=== PATIENT | female | born 1945 | race Caucasian/White ===

== ENCOUNTER 2020-09-23 12:31 | Inpatient (IN) | payer MEDICARE, BC ==
[2020-09-23] MEDS ORDERED: HYDROmorphone 0.5 MG/0.5 ML SYRINGE IVP STA ×3 (13:06→16:31)
--- NOTE | 2020-09-23 13:16 | ED ---
General Adult HPI - General Chief complaint: Extremity Injury, Upper Stated complaint: +COVID Broken R Arm Time Seen by Provider: 09/23/20 12:40 Source: patient, EMS, RN notes reviewed, old records reviewed Mode of arrival: EMS - History of Present Illness Initial comments: This is a 74-year-old female who presents emergency Department from [place] with a midshaft right humerus fracture. The orthopedic surgeon there stated he could do surgery until Sunday and thought the patient needed intervention so they sent the patient to our emergency department. Patient states she was outside and tripped and fell and broke her arm patient states at that time she did not hit her head or neck patient denies any headache or neck pain. Patient denies numbness weakness per patient denies any back pain chest pain L petitions shortness of breath per patient denies any abdominal pain patient states she has no other complaints besides the arm pain. - Related Data Home Medications Medication Instructions Recorded Confirmed Aspirin 81 mg PO DAILY 02/10/14 09/23/20 Benazepril [Lotensin] 10 mg PO DAILY 02/10/14 09/23/20 Levothyroxine Sodium [Synthroid] 125 mcg PO DAILY 02/10/14 09/23/20 Meloxicam 15 mg PO DAILY 02/10/14 09/23/20 Omeprazole [PriLOSEC] 20 mg PO DAILY 02/10/14 09/23/20 Potassium Chloride [Klor-Con 10] 10 meq PO DAILY 02/10/14 09/23/20 atenoloL [Tenormin] 25 mg PO BID 02/10/14 09/23/20 hydroCHLOROthiazide [Hydrodiuril] 12.5 mg PO DAILY 02/10/14 09/23/20 sulfaSALAzine [Azulfidine] 500 mg PO BID 02/10/14 09/23/20 Atorvastatin [Lipitor] 40 mg PO HS 09/23/20 09/23/20 Calcium Carbonate [Calcium] 600 mg PO BID 09/23/20 09/23/20 Gabapentin 600 mg PO TID 09/23/20 09/23/20 Montelukast [Singulair] 10 mg PO HS 09/23/20 09/23/20 Multivitamins, Thera [Multivitamin 1 tab PO DAILY 09/23/20 09/23/20 (formulary)] PARoxetine HCL [Paxil] 40 mg PO DAILY 09/23/20 09/23/20 amLODIPine [Norvasc] 10 mg PO DAILY 09/23/20 09/23/20 hydrALAZINE HCL [Apresoline] 25 mg PO TID 09/23/20 09/23/20 Allergies Allergy/AdvReac Type Severity Reaction Status Date / Time No Known Allergies Allergy Verified 09/23/20 13:54 Review of Systems ROS Statement: Those systems with pertinent positive or pertinent negative responses have been documented in the HPI. ROS Other: All systems not noted in ROS Statement are negative. Past Medical History Past Medical History: GERD/Reflux, Hyperlipidemia, Hypertension, Rheumatoid Arthritis (RA), Sleep Apnea/CPAP/BIPAP, Thyroid Disorder Additional Past Medical History / Comment(s): CPAP @ 17 L. RENAL CALCULI. History of Any Multi-Drug Resistant Organisms: None Reported Past Surgical History: Cholecystectomy, Heart Catheterization, Hysterectomy, Joint Replacement, Orthopedic Surgery Additional Past Surgical History / Comment(s): LEFT PAROTIDECTOMY. ORIF RIGHT RIGHT TOTAL KNEE. BETH. CATARACTS. CYSTO/RENAL CALCULI. Past Anesthesia/Blood Transfusion Reactions: Motion Sickness, Postoperative Nausea & Vomiting (PONV) Past Psychological History: No Psychological Hx Reported Smoking Status: Former smoker Past Alcohol Use History: Rare Past Drug Use History: None Reported - Past Family History Mother Family Medical History: Cancer General Exam - General Exam Comments Initial Comments: GENERAL: Patient is well-developed and well-nourished. Patient is nontoxic and well- hydrated and is in mild distress. ENT: Neck is soft and supple. No significant lymphadenopathy is noted. Oropharynx is clear. Moist mucous membranes. Neck has full range of motion without eliciting any pain EYES: The sclera were anicteric and conjunctiva were pink and moist. Extraocular movements were intact and pupils were equal round and reactive to light. Eyelids were unremarkable. PULMONARY: Unlabored respirations. Good breath sounds bilaterally. No audible rales rhonchi or wheezing was noted. CARDIOVASCULAR: There is a regular rate and rhythm without any murmurs gallops or rubs. ABDOMEN: Soft and nontender with normal bowel sounds. SKIN: Skin is clear with no lesions or rashes and otherwise unremarkable. NEUROLOGIC: Patient is alert and oriented x3. Cranial nerves II through XII are grossly intact. Motor and sensory are also intact. Normal speech, volume and content. Symmetrical smile. MUSCULOSKELETAL: Patient is unable to move the right arm she does have a splint in place it is a upper arm sugar tong splint. LYMPHATICS: No significant lymphadenopathy is noted PSYCHIATRIC: Normal psychiatric evaluation. Course Vital Signs 09/23/20 09/23/20 12:37 16:38 Temperature 98.2 F Pulse Rate 67 70 Respiratory 18 18 Rate Blood Pressure 153/69 147/77 O2 Sat by Pulse 96 92 L Oximetry Medical Decision Making - Medical Decision Making Patient's labs were reviewed and I reviewed the x-rays that showed a mid shaft fracture of the right humerus with angulation and displacement of 50%. [facility] she came in and saw the patient placed the patient a cast and will be admitting the patient overnight. - Lab Data Lab Results 09/23/20 Range/Units 13:48 Coronavirus (PCR) Not Detected (Not Detectd) Disposition Clinical Impression: Right humeral fracture, Inadequate pain control Disposition: ADMITTED IP TO THIS HOSP Referrals: Monico Olmos MD [Primary Care Provider] - 1-2 days Time of Disposition: 17:31
[2020-09-23] MEDS ORDERED: KETAMINE 10 MG/ML 20 ML VIAL IV ONE (16:30)
[2020-09-23] MEDS ORDERED: SODIUM CHLORIDE 0.9% 1,000 ML IV ONE (17:31)
[2020-09-23] MEDS ORDERED: HYDROmorphone 0.5 MG/0.5 ML SYRINGE IVP PRN (17:32)
[2020-09-23] MEDS ORDERED: HYDROmorphone 1 MG/ML 1 ML SYRINGE IVP PRN (18:03)
[2020-09-23] MEDS ORDERED: HYDROcodone/APAP 5-325MG 1 EACH TAB PO PRN (18:03)
[2020-09-23] MEDS ORDERED: ONDANSETRON 4 MG/2 ML VIAL IVP PRN (18:03)
[2020-09-23] MEDS ORDERED: NALOXONE 0.4 MG/ML 1 ML VIAL IV PRN (18:03)
--- NOTE | 2020-09-23 18:18 | P.HPOR ---
History of Present Illness H&P Date: 09/23/20 Chief Complaint: Right arm pain This is a 74-year-old female who was transferred from [facility] today with a midshaft humerus fracture. The patient reportedly tested positive for Covid in [place] and was told she would need surgery but they would be unable to perform the surgery. She was transferred to [facility] today where she tested negative for Covid. She reportedly had a fall yesterday and sustained injury to her right arm. We were consulted for orthopedic evaluation. Past Medical History Past Medical History: GERD/Reflux, Hyperlipidemia, Hypertension, Rheumatoid Arthritis (RA), Sleep Apnea/CPAP/BIPAP, Thyroid Disorder Additional Past Medical History / Comment(s): CPAP @ 17 L. RENAL CALCULI. History of Any Multi-Drug Resistant Organisms: None Reported Past Surgical History: Cholecystectomy, Heart Catheterization, Hysterectomy, Joint Replacement, Orthopedic Surgery Additional Past Surgical History / Comment(s): LEFT PAROTIDECTOMY. ORIF RIGHT RIGHT TOTAL KNEE. BETH. CATARACTS. CYSTO/RENAL CALCULI. Past Anesthesia/Blood Transfusion Reactions: Motion Sickness, Postoperative Nausea & Vomiting (PONV) Past Psychological History: No Psychological Hx Reported Smoking Status: Former smoker Past Alcohol Use History: Rare Past Drug Use History: None Reported - Past Family History Mother Family Medical History: Cancer Medications and Allergies Home Medications Medication Instructions Recorded Confirmed Type Aspirin 81 mg PO DAILY 02/10/14 09/23/20 History Benazepril [Lotensin] 10 mg PO DAILY 02/10/14 09/23/20 History Levothyroxine Sodium [Synthroid] 125 mcg PO DAILY 02/10/14 09/23/20 History Meloxicam 15 mg PO DAILY 02/10/14 09/23/20 History Omeprazole [PriLOSEC] 20 mg PO DAILY 02/10/14 09/23/20 History Potassium Chloride [Klor-Con 10] 10 meq PO DAILY 02/10/14 09/23/20 History atenoloL [Tenormin] 25 mg PO BID 02/10/14 09/23/20 History hydroCHLOROthiazide [Hydrodiuril] 12.5 mg PO DAILY 02/10/14 09/23/20 History sulfaSALAzine [Azulfidine] 500 mg PO BID 02/10/14 09/23/20 History Atorvastatin [Lipitor] 40 mg PO HS 09/23/20 09/23/20 History Calcium Carbonate [Calcium] 600 mg PO BID 09/23/20 09/23/20 History Gabapentin 600 mg PO TID 09/23/20 09/23/20 History Montelukast [Singulair] 10 mg PO HS 09/23/20 09/23/20 History Multivitamins, Thera [Multivitamin 1 tab PO DAILY 09/23/20 09/23/20 History (formulary)] PARoxetine HCL [Paxil] 40 mg PO DAILY 09/23/20 09/23/20 History amLODIPine [Norvasc] 10 mg PO DAILY 09/23/20 09/23/20 History hydrALAZINE HCL [Apresoline] 25 mg PO TID 09/23/20 09/23/20 History Allergies Allergy/AdvReac Type Severity Reaction Status Date / Time No Known Allergies Allergy Verified 09/23/20 13:54 Physical Examination This is a 74-year-old morbidly obese female in no acute distress. She is alert and oriented at this time. She is very apprehensive of any motion to the right arm. There is a coaptation splint in place. Exam of the head and neck reveal no obvious deformity. No pain with palpation about the cervical spine or paraspinal musculature. Exam of the right upper extremity reveals significant pain with any motion of the arm. She has full wrist motion without difficulty or pain. Neurovascular status of her extremity is intact. The remainder of her musculoskeletal exam is unremarkable. Results X-rays of the right arm revealed a midshaft transverse humerus fracture with mild displacement. No other fractures identified. Assessment and Plan (1) Morbid obesity Current Visit: Yes Status: Acute Code(s): E66.01 - MORBID (SEVERE) OBESITY DUE TO EXCESS CALORIES SNOMED Code(s): 389343735 (2) Right humeral fracture Current Visit: Yes Status: Acute Code(s): S42.301A - UNSP FRACTURE OF SHAFT OF HUMERUS, RIGHT ARM, INIT SNOMED Code(s): 88887679 Plan: The clinical and x-ray findings are discussed with the patient. Surgical versus conservative treatment options are discussed. It is recommended she be treated with a hanging arm cast. She is to remain at 45 elevated when in bed to allow the arm to hang. We will keep her inpatient overnight for pain management. We will follow-up with x-rays in 1 week.
[2020-09-23] MEDS: sulfaSALAzine 500 MG TAB PO SCH (20:02)
[2020-09-23] MEDS: hydrALAZINE HCL 25 MG TAB PO SCH (20:02)
[2020-09-23] MEDS: atenoloL 25 MG TAB PO SCH (20:02)
[2020-09-23] MEDS: GABAPENTIN 300 MG CAP PO SCH (20:03)
--- NOTE | 2020-09-23 20:39 | P.CONS ---
History of Present Illness - Reason for Consult Consult date: 09/23/20 HTN Requesting physician: Dallas Alan - Chief Complaint Right arm pain - History of Present Illness Patient is a 74-year-old female with a past medical history of rheumatoid arthritis on sulfasalazine, hypothyroidism, resistant hypertension, and GERD who presented as a transfer from [place] secondary to humeral fracture. She was admitted to orthopedics. We are consulted for medical management. Plan is for nonoperative management with a hanging cast. Patient seen and examined at bedside. She states that her pain control is much better. She states that the ketamine helped relieve her pain downstairs. She denies any current nausea, vomiting. She denies any recent cough, cold, fever, flu. She did test positive for COVID at [facility] however tested negative here. She has been asymptomatic without any recent illness and has received both of her vaccinations. She was at home and does not use any assistive devices. She reports that she had a trip and fall accident her son's driveway that resulted in her humeral fracture. She denied any loss of consciousness, seizure-like activity, or presyncope. Pertinent positives and negatives as discussed in HPI, a complete review of systems was performed and all other systems are negative. General: non toxic, no distress, appears at stated age, obese Derm: warm, dry Head: atraumatic, normocephalic, symmetric Eyes: EOMI, no lid lag, anicteric sclera, pupils equal round reactive to light ENT: Nose and ears atraumatic, no thrush, no pharyngeal erythema Neck: No thyromegaly, no cervical lymphadenopathy, trachea midline, supple Mouth: no lip lesion, mucus membranes moist Cardiovascular: S1S2 reg, no murmur, positive posterior tibial pulse bilateral, no edema, capillary refill less than 2 seconds Lungs: Decreased bs bilateral, no ronchi, no rales, no wheeze, no accessory muscle use Abdominal: soft, nontender to palpation, no guarding, no appreciable organomegaly, normal bowel sounds Ext: no gross muscle atrophy, Right arm in cast, moving fingers, moving b/l LE and left arm independently. Neuro: CN II-XI grossly intact, light touch intact all 4 extremities, finger to nose within normal limits, Psych: Alert, oriented, appropriate affect Patient is a 74-year-old female with humeral fracture plan is for nonoperative management, home in a.m. if pain is controlled. Arthritis -Continue sulfasalazine -Continue with multivitamins orthopedics is in agreement Hypertension -Home medications resumed -Follow blood pressures Dyslipidemia -Statin Hypothyroidism -Synthroid Obesity with BMI 41.2 Structured outpatient weight loss Thank you for allowing us to participate in the care of this pleasant patient. Do not hesitate to contact us with questions. Someone can be reached from the [facility] hospitalist group all hours of the day at [phone] or via CatchMe!. Past Medical History Past Medical History: GERD/Reflux, Hyperlipidemia, Hypertension, Rheumatoid Arthritis (RA), Sleep Apnea/CPAP/BIPAP, Thyroid Disorder Additional Past Medical History / Comment(s): CPAP @ 17 L. RENAL CALCULI. History of Any Multi-Drug Resistant Organisms: None Reported Past Surgical History: Cholecystectomy, Heart Catheterization, Hysterectomy, Joint Replacement, Orthopedic Surgery Additional Past Surgical History / Comment(s): LEFT PAROTIDECTOMY. ORIF RIGHT RIGHT TOTAL KNEE. BETH. CATARACTS. CYSTO/RENAL CALCULI- multiple Past Anesthesia/Blood Transfusion Reactions: Motion Sickness, Postoperative Nausea & Vomiting (PONV) Past Psychological History: No Psychological Hx Reported Additional Psychological History / Comment(s): TAKES PAXIL FOR SLEEP APNEA Smoking Status: Former smoker Past Alcohol Use History: Rare Past Drug Use History: None Reported - Past Family History Mother Family Medical History: Cancer Medications and Allergies Home Medications Medication Instructions Recorded Confirmed Type Aspirin 81 mg PO DAILY 02/10/14 09/23/20 History Benazepril [Lotensin] 10 mg PO DAILY 02/10/14 09/23/20 History Levothyroxine Sodium [Synthroid] 125 mcg PO DAILY 02/10/14 09/23/20 History Meloxicam 15 mg PO DAILY 02/10/14 09/23/20 History Omeprazole [PriLOSEC] 20 mg PO DAILY 02/10/14 09/23/20 History Potassium Chloride [Klor-Con 10] 10 meq PO DAILY 02/10/14 09/23/20 History atenoloL [Tenormin] 25 mg PO BID 02/10/14 09/23/20 History hydroCHLOROthiazide [Hydrodiuril] 12.5 mg PO DAILY 02/10/14 09/23/20 History sulfaSALAzine [Azulfidine] 500 mg PO BID 02/10/14 09/23/20 History Atorvastatin [Lipitor] 40 mg PO HS 09/23/20 09/23/20 History Calcium Carbonate [Calcium] 600 mg PO BID 09/23/20 09/23/20 History Gabapentin 600 mg PO TID 09/23/20 09/23/20 History Montelukast [Singulair] 10 mg PO HS 09/23/20 09/23/20 History Multivitamins, Thera [Multivitamin 1 tab PO DAILY 09/23/20 09/23/20 History (formulary)] PARoxetine HCL [Paxil] 40 mg PO DAILY 09/23/20 09/23/20 History amLODIPine [Norvasc] 10 mg PO DAILY 09/23/20 09/23/20 History hydrALAZINE HCL [Apresoline] 25 mg PO TID 09/23/20 09/23/20 History Allergies Allergy/AdvReac Type Severity Reaction Status Date / Time No Known Allergies Allergy Verified 09/23/20 13:54 Physical Exam Osteopathic Statement: *. No significant issues noted on an osteopathic structural exam other than those noted in the History and Physical/Consult. Vitals: Vital Signs Temp Pulse Pulse Resp BP BP Pulse Ox 09/23/20 18:52 98.2 F 65 15 175/84 90 L 09/23/20 16:38 70 18 147/77 92 L 09/23/20 12:37 98.2 F 67 18 153/69 96 Intake and Output 09/23/20 09/23/20 09/23/20 06:59 14:59 22:59 Other: Weight 108.862 kg 108.862 kg
[2020-09-23] MEDS ORDERED: MONTELUKAST 10 MG TAB PO SCH (21:00)
[2020-09-23] MEDS ORDERED: ATORVASTATIN 40 MG TAB PO SCH (21:00)
[2020-09-24] MEDS ORDERED: LEVOTHYROXINE 125 MCG TAB PO SCH (06:30)
[2020-09-24 08:03] VITALS: BP 179/82; PULSE 69; RESP 18; TEMP 98.2
[2020-09-24] MEDS: hydrALAZINE HCL 25 MG TAB PO SCH (08:36)
[2020-09-24] MEDS: GABAPENTIN 300 MG CAP PO SCH (08:36)
[2020-09-24] MEDS: atenoloL 25 MG TAB PO SCH (08:36)
[2020-09-24] MEDS: sulfaSALAzine 500 MG TAB PO SCH (08:37)
--- NOTE | 2020-09-24 08:59 | P.DS ---
Providers Date of admission: 09/23/20 17:31 Expected date of discharge: 09/24/20 Attending physician: Dallas Alan Consults: 09/23/20 18:06 Consult Physician Routine Consulting Provider: Lizzette Kahn Consult Reason/Comments: medical management Do you want consulting provider notified?: Yes Primary care physician: Monico Olmos MD - Discharge Diagnosis(es) (1) Morbid obesity Current Visit: Yes Status: Acute (2) Right humeral fracture Current Visit: Yes Status: Acute Hospital Course: This is a 74-year-old female who was transferred from [facility] today with a midshaft humerus fracture. The patient reportedly tested positive for Covid in [place] and was told she would need surgery but they would be unable to perform the surgery. She was transferred to [facility] today where she tested negative for Covid. She reportedly had a fall on 09/22/2020 and sustained injury to her right arm. We were consulted for orthopedic evaluation. Today she is doing well. Her pain is much more controlled. She is having difficulty getting up to the bathroom on her own. She is a 1-2 person assist. She is right-handed and having difficulty with ADLs. It is recommended that she be transferred to inpatient rehab. We will need to see her weekly for x-rays. She may be discharged to rehab today if cleared medically. Plan - Discharge Summary Discharge Rx Participant: Yes New Discharge Prescriptions: New HYDROcodone/APAP 5-325MG [Arvin 5] 1 - 2 each PO Q6HR PRN #30 tab PRN Reason: Pain No Action Benazepril [Lotensin] 10 mg PO DAILY sulfaSALAzine [Azulfidine] 500 mg PO BID Meloxicam 15 mg PO DAILY Levothyroxine Sodium [Synthroid] 125 mcg PO DAILY hydroCHLOROthiazide [Hydrodiuril] 12.5 mg PO DAILY atenoloL [Tenormin] 25 mg PO BID Potassium Chloride [Klor-Con 10] 10 meq PO DAILY Omeprazole [PriLOSEC] 20 mg PO DAILY Aspirin 81 mg PO DAILY hydrALAZINE HCL [Apresoline] 25 mg PO TID Montelukast [Singulair] 10 mg PO HS Gabapentin 600 mg PO TID PARoxetine HCL [Paxil] 40 mg PO DAILY amLODIPine [Norvasc] 10 mg PO DAILY Multivitamins, Thera [Multivitamin (formulary)] 1 tab PO DAILY Calcium Carbonate [Calcium] 600 mg PO BID Atorvastatin [Lipitor] 40 mg PO HS Discharge Medication List Aspirin 81 mg PO DAILY 02/10/14 [History] Benazepril [Lotensin] 10 mg PO DAILY 02/10/14 [History] Levothyroxine Sodium [Synthroid] 125 mcg PO DAILY 02/10/14 [History] Meloxicam 15 mg PO DAILY 02/10/14 [History] Omeprazole [PriLOSEC] 20 mg PO DAILY 02/10/14 [History] Potassium Chloride [Klor-Con 10] 10 meq PO DAILY 02/10/14 [History] atenoloL [Tenormin] 25 mg PO BID 02/10/14 [History] hydroCHLOROthiazide [Hydrodiuril] 12.5 mg PO DAILY 02/10/14 [History] sulfaSALAzine [Azulfidine] 500 mg PO BID 02/10/14 [History] Atorvastatin [Lipitor] 40 mg PO HS 09/23/20 [History] Calcium Carbonate [Calcium] 600 mg PO BID 09/23/20 [History] Gabapentin 600 mg PO TID 09/23/20 [History] Montelukast [Singulair] 10 mg PO HS 09/23/20 [History] Multivitamins, Thera [Multivitamin (formulary)] 1 tab PO DAILY 09/23/20 [Histor y] PARoxetine HCL [Paxil] 40 mg PO DAILY 09/23/20 [History] amLODIPine [Norvasc] 10 mg PO DAILY 09/23/20 [History] hydrALAZINE HCL [Apresoline] 25 mg PO TID 09/23/20 [History] HYDROcodone/APAP 5-325MG [Arvin 5] 1 - 2 each PO Q6HR PRN #30 tab 09/24/20 [Rx] Follow up Appointment(s)/Referral(s): Monico Olmos MD [Primary Care Provider] - 1-2 days Dallas Alan MD [STAFF PHYSICIAN] - 1 Week Activity/Diet/Wound Care/Special Instructions: Routine cast care right upper extremity. Patient must remain elevated to at least a 45 angle to allow the arm to dangle. Do not support arm with pillow. Discharge Disposition: TRANSFER TO SNF/ECF
[2020-09-24] MEDS ORDERED: PANTOPRAZOLE 40 MG TABLET PO SCH (09:00)
[2020-09-24] MEDS ORDERED: lisinopriL 10 MG TAB PO SCH (09:00)
[2020-09-24] MEDS ORDERED: MELOXICAM 7.5 MG TAB PO SCH (09:00)
[2020-09-24] MEDS ORDERED: PARoxetine 20 MG TAB PO SCH (09:00)
[2020-09-24] MEDS ORDERED: ASPIRIN 81 MG PO SCH (09:00)
[2020-09-24] MEDS ORDERED: hydroCHLOROthiazide 12.5 MG CAP PO SCH (09:00)
[2020-09-24] MEDS ORDERED: POTASSIUM CHLORIDE ER 10 MEQ TAB.ER.PRT PO SCH (09:00)
[2020-09-24] MEDS ORDERED: amLODIPine 10 MG TAB PO SCH (09:00)
--- NOTE | 2020-09-24 12:58 | P.PN ---
Subjective Progress Note Date: 09/24/20 Patient is doing fairly well today. She was up in the chair when I saw her. Her pain is well controlled. Objective - Vital Signs Vital signs: Vital Signs Temp 98.2 F 09/24/20 07:32 Pulse 69 09/24/20 08:00 Resp 18 09/24/20 08:00 BP 179/82 09/24/20 07:32 Pulse Ox 92 L 09/24/20 01:12 Intake & Output 09/23/20 09/24/20 09/24/20 18:59 06:59 18:59 Weight 108.862 kg Other: Voiding Method Toilet Toilet # Voids 1 - Exam General: The patient is awake and alert, in no distress Eye: there is normal conjunctiva bilaterally. Neck: The neck is supple, there is no JVD. Cardiovascular: Normal S1-S2, no S3-S4, no murmurs. Respiratory: Lungs clear to auscultation bilaterally Gastrointestinal: Abdomen is soft, nontender Musculoskeletal: There is no pedal edema. Neurological:. Speech is normal. Skin: Skin is warm and dry Assessment and Plan Assessment: Patient is a 74-year-old female with humeral fracture plan is for nonoperative management, home in a.m. if pain is controlled. Arthritis -Continue sulfasalazine -Continue with multivitamins orthopedics is in agreement Hypertension -Home medications resumed -Follow blood pressures Dyslipidemia -Statin Hypothyroidism -Synthroid Obesity with BMI 41.2 Structured outpatient weight loss Thank you for allowing us to participate in the care of this pleasant patient. Discharge planning per primary
== END 2020-09-24 15:26 | DRG 563 ==
LOC: EC 12:31 → 4SSUR 17:31
PROVIDERS: ADMIT Orthopaedic Surgery; ATTEND Orthopaedic Surgery
DX: S42.301A Unspecified fracture of shaft of humerus, right arm, initial encounter for closed fracture (principal); Z68.41 Body mass index [BMI] 40.0-44.9, adult; E03.9 Hypothyroidism, unspecified; E66.01 Morbid (severe) obesity due to excess calories; E78.5 Hyperlipidemia, unspecified; I10 Essential (primary) hypertension; M06.9 Rheumatoid arthritis, unspecified; M19.90 Unspecified osteoarthritis, unspecified site; Z20.822 Contact with and (suspected) exposure to COVID-19; W01.0XXA Fall on same level from slipping, tripping and stumbling without subsequent striking against object, initial encounter; Z79.1 Long term (current) use of non-steroidal anti-inflammatories (NSAID); Z79.82 Long term (current) use of aspirin; Z79.890 Hormone replacement therapy; Z79.899 Other long term (current) drug therapy; Z87.442 Personal history of urinary calculi; Z87.891 Personal history of nicotine dependence; Z90.710 Acquired absence of both cervix and uterus; Z98.42 Cataract extraction status, left eye; Z98.41 Cataract extraction status, right eye; E89.2 Postprocedural hypoparathyroidism; Z96.651 Presence of right artificial knee joint; Z90.49 Acquired absence of other specified parts of digestive tract; G47.30 Sleep apnea, unspecified
CPT/HCPCS: 87635; 94660; 96374; 96375; 96376; 99285

== ENCOUNTER → 2021-01-27 | Outpatient (CLI) | payer MEDICARE, BC ==
[2021-01-27 18:51] LABS: HCT 43.8 % (37.2-46.3); HGB 14.4 g/dL (12.0-15.0); MCH 32.7 pg (27.0-32.0); MCHC 32.9 g/dL (32.0-37.0); MCV 99.3 fL (80.0-97.0); Mean Platelet Volume 9.6 fL (9.5-12.2); Platelet Count 225 X 10*3/uL (140-440); RBC 4.41 X 10*6/uL (4.10-5.20); RDW 14.9 % (11.5-14.5); WBC 7.77 X 10*3/uL (4.50-10.00)
[2021-01-27 19:43] LABS: Erythrocyte Sedimentation Rate 8 mm/Hr (0-30)
[2021-01-27 21:24] LABS: Hemoglobin A1C 5.6 % (4.0-6.0)
[2021-01-28 05:11] LABS: African American GFR (CKD) 51.6 (60.0-200.0); Albumin 4.2 g/dL (3.80-4.90); Albumin/Globulin Ratio 2.1 (1.60-3.17); Anion Gap 13.2 mmol/L (4.00-12.00); BUN/Creat Ratio 13.33 Ratio (12.00-20.00); C Reactive Protein 0.6 mg/dL (0.0-0.8); Calcium 9.8 mg/dL (8.7-10.3); Carbon Dioxide 26.8 mmol/L (21.6-31.8); Non-African American GFR(CKD) 44.5 (60.0-200.0); Potassium 3.6 mmol/L (3.5-5.5); Total Bilirubin 0.4 mg/dL (0.3-1.2); Total Protein 6.2 g/dL (6.2-8.2)
== END | disposition home or self-care (01) ==
LOC: LABWHC1 14:32
PROVIDERS: ATTEND Orthopaedic Surgery
DX: S42.291K Other displaced fracture of upper end of right humerus, subsequent encounter for fracture with nonunion (principal); X58.XXXD Exposure to other specified factors, subsequent encounter
CPT/HCPCS: 36415; 80053; 82306; 83036; 84443; 85027; 85652; 86140

== ENCOUNTER → 2021-01-31 | Outpatient (CLI) | payer MEDICARE, BC ==
--- NOTE | 2021-01-31 10:21 | CT ---
EXAMINATION TYPE: CT humerus RT wo con DATE OF EXAM: 01/31/2021 COMPARISON: Radiograph 01/19/2021 HISTORY: 75-year-old female M84.321A, Stress fx 4 months ago TECHNIQUE: Contiguous axial scanning of the right humerus without IV contrast. Coronal and sagittal r econstructions performed. 3-D reconstructions generated on a dedicated workstation. CT DLP: 681.7 mGycm Automated exposure control for dose reduction was used. FINDINGS: Frankly angulated and distracted mid humeral shaft fracture is redemonstrated. There has been some fo rmation of sclerosis along the fracture margin. A 5.0 x 3.5 cm area of lobulated hypodensity interpos ed at the fracture site shows some coarse calcification/ossification is demonstrated radiographically . Fracture appears to be angulated posteriorly and medially. Mild periostitis noted at the fracture e nds of the bone. IMPRESSION: 1. TRANSVERSE MID HUMERAL SHAFT FRACTURE WITH BIRD POSTERIOR AND MEDIAL ANGULATION. CONTINUED FOLLOW -UP TO EXCLUDE DELAYED UNION GIVEN SOME DEVELOPING SCLEROSIS ALONG THE FRACTURE MARGINS AND CONTINUED SEPARATION AT THE FRACTURED ENDS OF THE BONE. 2. A 5.0 X 3.5 CM AREA OF LOBULATED HYPODENSITY INTERPOSED AT THE FRACTURE SITE SHOWS SOME HETEROTOPI C OSSIFICATION, SUSPECTED HEMATOMA RATHER THAN MASS. FOLLOW-UP CT CAN BE CONSIDERED.
== END | disposition home or self-care (01) ==
LOC: RADCTMAIN 07:15
PROVIDERS: ATTEND Orthopaedic Surgery
DX: M84.321A Stress fracture, right humerus, initial encounter for fracture (principal)